=== PATIENT | male | born 1980 ===

== ENCOUNTER 2024-02-06 04:42 | Day surgery (SDC) | payer BC ==
[2024-02-05 09:57] VITALS: BMI 26.6
[2024-02-06 09:28] VITALS: TEMP 98.1
[2024-02-06 09:39] VITALS: RESP 17
[2024-02-06 11:10] VITALS: BP 101/60; PULSE 55
== END 2024-02-06 10:30 | disposition home or self-care (01) ==
LOC: JASU-ENDO 04:42
PROVIDERS: ATTEND Internal Medicine Gastroenterology
PROC: 0DJD8ZZ Inspection of Lower Intestinal Tract, Via Natural or Artificial Opening Endoscopic (ICD-10-PCS; principal; 2024-02-06 09:00)
DX: Z12.11 Encounter for screening for malignant neoplasm of colon (principal); K64.8 Other hemorrhoids